=== PATIENT | female | born 1965 | race Caucasian/White ===

== ENCOUNTER 2022-12-05 06:54 | Inpatient (IN) | payer MEDICARE, MEDICAID ==
[~2022-12-05] VITALS: Ht 162.6 cm; Wt 66.0 kg
[2022-12-05] MEDS ORDERED: SODIUM CHLORIDE 0.9% 1,000 ML IVB ONE (07:00)
[2022-12-05] MEDS ORDERED: KETOROLAC TROMETH 30 MG/ML 1ML VIAL IV ONE ×2 (07:00→11:45)
[2022-12-05] MEDS ORDERED: ONDANSETRON HCL 4 MG/2 ML VIAL IV ONE ×2 (07:00→11:45)
[2022-12-05 07:22] LABS: Eosinophils # (auto) 0 10 ^3/uL (0-0.8); Eosinophils % (auto) 0.2 % (0.0-7.0); Lymphocytes # (auto) 0.9 10 ^3/uL (0.4-5.4); Monocytes # (auto) 0.5 10 ^3/uL (0-1.3); Neutrophils # (auto) 10.9 10 ^3/uL (1.6-8.6)
[2022-12-05 07:23] LABS: Basophils # (auto) 0 10 ^3/uL (0-0.2); Basophils % (auto) 0.3 % (0.0-2.0); Hemoglobin 14.1 g/dL (12.2-16.2); Lymphocytes % (auto) 7.4 % (10.0-50.0); Mean Corpuscular Hemoglobin 31.7 pg (28.0-32.0); Mean Corpuscular Hgb Conc. 34.5 g/dL (32.0-36.0); Monocytes % (auto) 4.4 % (0.0-12.0); Neutrophils % (auto) 87.7 % (37.0-80.0); Nucleated Red Blood Cells % 0.1 %; Red Blood Cells 4.45 10^6/uL (4.0-5.20); Red Cell Distribution Width 13.7 % (11.8-14.3); White Blood Cell 12.4 10^3/uL (4.4-10.8)
[2022-12-05 08:07] LABS: Albumin 4.1 g/dL (3.4-5.0); BUN/Creatinine Ratio 20.4; Calcium 9.2 mg/dL (8.5-10.1); Potassium 3.8 mmol/L (3.5-5.1)
[2022-12-05 08:11] LABS: Bilirubin, Total 0.3 mg/dL (0.2-1.0); Total Protein 7.6 g/dL (6.4-8.2)
[2022-12-05 08:24] LABS: Urine Bacteria NONE SEEN /hpf (None Seen); Urine Blood 2+ /uL (Negative); Urine Specific Gravity 1.007 (1.001-1.035); Urine WBC 1 /hpf (0 - 5)
[2022-12-05] MEDS ORDERED: ACETAMINOPHEN 325 MG TAB PO ONE (11:15)
[2022-12-05] MEDS ORDERED: PANTOPRAZOLE 40 MG TAB PO ONE (12:45)
[2022-12-05] MEDS ORDERED: ONDANSETRON HCL 4 MG/2 ML VIAL IV PRN (12:45)
[2022-12-05] MEDS ORDERED: ACETAMINOPHEN 325 MG TAB PO PRN (12:45)
[2022-12-05] MEDS ORDERED: SUMA100T15 PO (12:49)
[2022-12-05] MEDS ORDERED: AMIT1TAB35 PO (12:49)
[2022-12-05] MEDS ORDERED: ASPI-717 (12:49)
[2022-12-05] MEDS ORDERED: QUET300T24 PO (12:49)
[2022-12-05] MEDS ORDERED: HYDR-3682 PO (12:49)
[2022-12-05] MEDS ORDERED: SUMA100T15 (12:49)
[2022-12-05] MEDS: SODIUM CHLORIDE 0.9% 1,000 ML IV SCH (13:12)
[2022-12-05 15:50] LABS: Cholesterol 220 mg/dL (< 200)
[2022-12-05 15:53] LABS: HDL Cholesterol 55 mg/dL (40-59); LDL Cholesterol 154 mg/dL (< 100); Triglycerides 107 mg/dL (< 150)
[2022-12-05] MEDS: HYDROcodone-ACET 5/325MG TAB PO PRN ×2 (15:55→20:58)
[2022-12-06] MEDS ORDERED: SUMAtriptan SUCCINATE 25 MG TAB PO ONE ×2 (01:39→01:50)
[2022-12-06] MEDS: SUMAtriptan SUCCINATE 25 MG TAB PO PRN ×2 (01:58→14:22)
[2022-12-06] MEDS: SODIUM CHLORIDE 0.9% 1,000 ML IV SCH ×2 (02:05→15:25)
[2022-12-06] MEDS: HYDROcodone-ACET 5/325MG TAB PO PRN (02:05)
[2022-12-06 06:07] LABS: Basophils # (auto) 0 10 ^3/uL (0-0.2); Basophils % (auto) 0.9 % (0.0-2.0); Eosinophils # (auto) 0.1 10 ^3/uL (0-0.8); Eosinophils % (auto) 1.1 % (0.0-7.0); Hematocrit 36.2 % (36.0-46.0); Hemoglobin 12.6 g/dL (12.2-16.2); Lymphocytes # (auto) 1.8 10 ^3/uL (0.4-5.4); Lymphocytes % (auto) 38.8 % (10.0-50.0); Mean Corpuscular Hemoglobin 32.2 pg (28.0-32.0); Mean Corpuscular Hgb Conc. 34.8 g/dL (32.0-36.0); Mean Corpuscular Volume 92.5 fL (80.0-100.0); Monocytes # (auto) 0.6 10 ^3/uL (0-1.3); Neutrophils # (auto) 2.2 10 ^3/uL (1.6-8.6); Neutrophils % (auto) 46.2 % (37.0-80.0); Nucleated Red Blood Cells % 0.2 %; Red Blood Cells 3.92 10^6/uL (4.0-5.20); Red Cell Distribution Width 13.4 % (11.8-14.3); White Blood Cell 4.7 10^3/uL (4.4-10.8)
[2022-12-06] MEDS ORDERED: MELATONIN 5 MG TAB PO ONE (06:15)
[2022-12-06 06:17] LABS: Albumin 3.6 g/dL (3.4-5.0); Calcium 8.6 mg/dL (8.5-10.1); Potassium 4.1 mmol/L (3.5-5.1)
[2022-12-06 06:22] LABS: BUN/Creatinine Ratio 28.8; Bilirubin, Total 0.4 mg/dL (0.2-1.0); Total Protein 6.2 g/dL (6.4-8.2)
[2022-12-06] MEDS: AMITRIPTYLINE HCL 25 MG TAB PO SCH (10:00)
[2022-12-06] MEDS ORDERED: QUEtiapine FUMARATE 100 MG TAB PO SCH ×2 (10:00→23:00)
[2022-12-06] MEDS: PANTOPRAZOLE 40 MG TAB PO SCH (10:21)
[2022-12-06] MEDS: ENOXAPARIN SOD 40 MG/0.4 ML SYRINGE SC SCH (10:21)
[2022-12-06] MEDS ORDERED: cefTRIAXone 1GM/50ML D5W 50 ML IV ONE (12:45)
[2022-12-06 16:28] VITALS: BP 128/74
[2022-12-06 17:19] VITALS: BP 128/74
[2022-12-06 22:00] VITALS: BP 133/82
[2022-12-06] MEDS ORDERED: MELATONIN 5 MG TAB PO SCH (22:00)
[2022-12-06] MEDS ORDERED: LACTULOSE 20Gm/30ML SOLN PO PRN (23:00)
[2022-12-06] MEDS: DOCUSATE SOD 100 MG CAP PO PRN ×2 (23:13→23:17)
[2022-12-07] VITALS: BP 114/70
[2022-12-07 05:00] VITALS: BP 104/67
[2022-12-07] MEDS ORDERED: CIPR-173 PO (08:00)
[2022-12-07] MEDS ORDERED: TRAM50TA2 PO (08:00)
[2022-12-07] MEDS ORDERED: TAM04C PO (08:00)
[2022-12-07] MEDS: PANTOPRAZOLE 40 MG TAB PO SCH (08:46)
[2022-12-07] MEDS: ENOXAPARIN SOD 40 MG/0.4 ML SYRINGE SC SCH (08:47)
[2022-12-07] MEDS: AMITRIPTYLINE HCL 25 MG TAB PO SCH (08:48)
[2022-12-07 09:00] VITALS: BP 139/76
[2022-12-07] MEDS ORDERED: cefTRIAXone 1GM/50ML D5W 50 ML IV SCH (09:00)
[2022-12-07 10:52] VITALS: BP 139/76
== END 2022-12-07 13:30 | disposition home or self-care (01) | DRG 694 ==
LOC: ER 06:54 → EDBD 06:54 → OVERFLOW 12:44 → CENTRAL 12-06 14:47
PROVIDERS: ADMIT Nurse Practitioner Family; ATTEND Family Medicine
DX: N20.1 Calculus of ureter (principal); N39.0 Urinary tract infection, site not specified; E78.5 Hyperlipidemia, unspecified; D72.829 Elevated white blood cell count, unspecified; Z20.822 Contact with and (suspected) exposure to COVID-19; E78.00 Pure hypercholesterolemia, unspecified; K59.00 Constipation, unspecified; F32.A Depression, unspecified; Z87.442 Personal history of urinary calculi; Z98.51 Tubal ligation status
CPT/HCPCS: 36415; 74176; 80053; 80061; 81001; 83036; 83690; 84443; 85025; 87426; 96361; 96374; 96375; G0378; J0696; J1885; J2405

== ENCOUNTER 2023-01-09 14:55 | Emergency (ER) | payer MEDICARE, MEDICAID ==
[~2023-01-09] VITALS: Ht 162.6 cm; Wt 60.0 kg
[~2023-01-09 14:55] MED LIST: AMIT1TAB35 PO; ASPI-717; CIPR-173 PO; HYDR-3682 PO; QUET300T24 PO; SUMA100T15; SUMA100T15 PO; TAM04C PO; TRAM50TA2 PO
[2023-01-09 15:46] VITALS: BP 139/93
[2023-01-09] MEDS ORDERED: KETOROLAC TROMETH 60MG/2ML VIAL IM ONE (16:45)
[2023-01-09] MEDS ORDERED: ONDANSETRON ODT 4 MG TAB PO ONE (16:45)
[2023-01-09] MEDS ORDERED: IBUP600T27 PO (17:19)
[2023-01-09] MEDS ORDERED: ONDA-144 PO (17:19)
== END 2023-01-09 17:34 | disposition home or self-care (01) ==
LOC: ER 14:55
DX: G43.909 Migraine, unspecified, not intractable, without status migrainosus (principal); E78.5 Hyperlipidemia, unspecified; Z98.51 Tubal ligation status; Z87.442 Personal history of urinary calculi
CPT/HCPCS: 70450; 96372; 99285; J1885; Q0162

== ENCOUNTER 2023-01-26 18:53 | Emergency (ER) | payer MEDICARE, MEDICAID ==
[~2023-01-26] VITALS: Ht 162.6 cm; Wt 54.4 kg
[~2023-01-26 18:53] MED LIST changes: +IBUP600T27 PO; +ONDA-144 PO
[2023-01-26] MEDS ORDERED: SODIUM CHLORIDE 0.9% 1,000 ML IV ONE (19:00)
[2023-01-26] MEDS ORDERED: HALOPERIDOL LACTATE 5 MG/ML INJ VIAL IM ONE ×2 (19:00→23:15)
[2023-01-26] MEDS ORDERED: LORazepam 2MG/ML-1ML VIAL IM ONE ×2 (19:00→23:15)
[2023-01-26] MEDS ORDERED: diphenhdrAMINE HCL 50 MG/1 ML VL IM ONE (19:00)
[2023-01-26 19:49] LABS: Basophils # (auto) 0 10 ^3/uL (0-0.2); Eosinophils # (auto) 0 10 ^3/uL (0-0.8); Hemoglobin 12.8 g/dL (12.2-16.2)
[2023-01-26 19:51] LABS: Basophils % (auto) 0.7 % (0.0-2.0); Eosinophils % (auto) 0.2 % (0.0-7.0); Hematocrit 37.3 % (36.0-46.0); Lymphocytes # (auto) 1.5 10 ^3/uL (0.4-5.4); Lymphocytes % (auto) 24.9 % (10.0-50.0); Mean Corpuscular Hemoglobin 31.3 pg (28.0-32.0); Mean Corpuscular Hgb Conc. 34.3 g/dL (32.0-36.0); Mean Corpuscular Volume 91.1 fL (80.0-100.0); Monocytes % (auto) 16.6 % (0.0-12.0); Neutrophils # (auto) 3.4 10 ^3/uL (1.6-8.6); Neutrophils % (auto) 57.6 % (37.0-80.0); Red Blood Cells 4.09 10^6/uL (4.0-5.20); Red Cell Distribution Width 13.8 % (11.8-14.3)
[2023-01-26 20:06] LABS: Albumin 3.9 g/dL (3.4-5.0); Calcium 9.8 mg/dL (8.5-10.1); Potassium 3.1 mmol/L (3.5-5.1)
[2023-01-26 20:10] LABS: BUN/Creatinine Ratio 20.6 (10.0-20.0); Bilirubin, Total 0.5 mg/dL (0.2-1.0); Total Protein 7.5 g/dL (6.4-8.2)
[2023-01-27 10:45] LABS: Alcohol, Urine < 3.0 mg/dL (0-10); Amphetamine Screen, Urine NEGATIVE (NEGATIVE); Barbiturate Scree,Urine NEGATIVE (NEGATIVE); Benzodiazephine Screen, Urine NEGATIVE (NEGATIVE); Cannabinoid Screen, Urine NEGATIVE (NEGATIVE); Cocaine Screen, Urine NEGATIVE (NEGATIVE); Opiate Scree,Urine NEGATIVE (NEGATIVE); Phencyclidine Screen, Urine NEGATIVE (NEGATIVE)
[2023-01-27 10:53] LABS: Urine Bacteria NONE SEEN /hpf (None Seen); Urine Blood Negative /uL (Negative); Urine Mucus FEW (None Seen); Urine WBC 12 /hpf (0 - 5)
[2023-01-27] MEDS: QUEtiapine FUMARATE 25 MG TAB PO SCH (22:09)
[2023-01-28] MEDS ORDERED: TEMAZEPAM 15 MG CAP PO ONE (01:15)
[2023-01-28] MEDS ORDERED: ACETAMINOPHEN 325 MG TAB PO ONE (05:00)
[2023-01-28] MEDS ORDERED: diphenhdrAMINE HCL 25 MG CAP PO ONE (11:00)
[2023-01-28] MEDS: QUEtiapine FUMARATE 25 MG TAB PO SCH (22:00)
[2023-01-28] MEDS: LORazepam 2MG/ML-1ML VIAL IM ONE (22:05)
[2023-01-29] MEDS ORDERED: diphenhdrAMINE HCL 50 MG/1 ML VL IM ONE (00:15)
[2023-01-29] MEDS ORDERED: HALOPERIDOL LACTATE 5 MG/ML INJ VIAL IM ONE (00:15)
[2023-01-29] MEDS: LORazepam 2MG/ML-1ML VIAL IM ONE (00:15)
[2023-01-29] MEDS ORDERED: HYDROcodone-ACET 10/325MG TAB PO ONE (00:30)
[2023-01-29] MEDS ORDERED: ACETAMINOPHEN 325 MG TAB PO ONE (09:00)
[2023-01-29 09:22] VITALS: BP 123/72
== END 2023-01-29 10:03 | disposition short-term general hospital (02) ==
LOC: ER 18:53 → EDBD 18:53 → ER 01-29 10:03
DX: R41.82 Altered mental status, unspecified (principal); E78.5 Hyperlipidemia, unspecified; Z98.51 Tubal ligation status; Z87.442 Personal history of urinary calculi; Z20.822 Contact with and (suspected) exposure to COVID-19
CPT/HCPCS: 36415; 80053; 80307; 80320; 81001; 85025; 87426; 96360; 96372; 99285; J1200; J1630; J2060; J7030

== ENCOUNTER 2024-01-13 14:29 | Emergency (ER) | payer OTHER ==
[~2024-01-13] VITALS: Ht 162.6 cm; Wt 59.0 kg
[~2024-01-13 14:29] MED LIST changes: +AMIT-118 PO; -AMIT1TAB35 PO; +IBUP-1454 PO; -IBUP600T27 PO; +NABU-72 PO; -TAM04C PO; +TAMS-35 PO; +ZOFR4T PO
[2024-01-13 15:27] VITALS: PULSE 118; RESP 20; O2SAT 96
[2024-01-13 15:57] LABS: Basophils # (auto) 0 10 ^3/uL (0-0.2); Eosinophils # (auto) 0 10 ^3/uL (0-0.8); Mean Corpuscular Volume 93.5 fL (80.0-100.0); Monocytes # (auto) 0.8 10 ^3/uL (0-1.3); Nucleated Red Blood Cells % 0.1 %
[2024-01-13 15:59] LABS: Basophils % (auto) 0.7 % (0.0-2.0); Eosinophils % (auto) 0.7 % (0.0-7.0); Hematocrit 40.2 % (36.0-46.0); Hemoglobin 13.6 g/dL (12.2-16.2); Lymphocytes # (auto) 1.3 10 ^3/uL (0.4-5.4); Lymphocytes % (auto) 19.1 % (10.0-50.0); Mean Corpuscular Hemoglobin 31.6 pg (28.0-32.0); Mean Corpuscular Hgb Conc. 33.8 g/dL (32.0-36.0); Monocytes % (auto) 11.9 % (0.0-12.0); Neutrophils # (auto) 4.6 10 ^3/uL (1.6-8.6); Neutrophils % (auto) 67.6 % (37.0-80.0); Red Cell Distribution Width 13.6 % (11.8-14.3); White Blood Cell 6.8 10^3/uL (4.4-10.8)
[2024-01-13 16:07] LABS: Magnesium 2.2 mg/dL (1.6-2.6)
[2024-01-13 16:09] LABS: Alanine Aminotransferase 22 U/L (7-40); Albumin 4.7 g/dL (3.2-4.8); Alkaline Phosphatase 86 U/L (46-116); Anion Gap 7 (5-15); Aspartate Aminotransferase 20 U/L (13-40); BUN/Creatinine Ratio 12.5 (10.0-20.0); Bilirubin, Total 0.6 mg/dL (0.2-1.0); Blood Urea Nitrogen 10 mg/dL (9-23); Calcium 10.6 mg/dL (8.7-10.4); Carbon Dioxide 28 mmol/L (20-30); Chloride 106 mmol/L (98-107); Glucose 87 mg/dL (74-106); Potassium 3.5 mmol/L (3.5-5.1); Sodium 141 mmol/L (136-145); Total Protein 7.3 g/dL (5.7-8.2)
[2024-01-13 16:10] LABS: Acetaminophen < 2.0 UG/ML (10.0-20.0)
[2024-01-13 16:13] LABS: Salicylate < 3.0 mg/dL (2.8-20.0)
[2024-01-13 16:26] LABS: Blood Alcohol < 3.0 mg/dL (<10)
[2024-01-13] MEDS: diphenhdrAMINE HCL 50 MG/1 ML VL IM ONE (16:30)
[2024-01-13] MEDS ORDERED: HALOPERIDOL LACTATE 5 MG/ML INJ VIAL IM ONE (16:30)
[2024-01-13] MEDS: LORazepam 2MG/ML-1ML VIAL IM ONE (16:30)
[2024-01-13] MEDS: LORazepam 2MG/ML-1ML VIAL IV ONE (16:52)
[2024-01-13] MEDS: LORazepam 2MG/ML-1ML VIAL ONE (16:53)
[2024-01-13 19:15] VITALS: PULSE 101; RESP 24; O2SAT 98
[2024-01-13] MEDS: MAGNESIUM SULFATE 1GM/100ML 100 ML IV SCH (19:48)
[2024-01-13] MEDS: SODIUM CHLORIDE 0.9% 1,000 ML IV ONE (20:39)
[2024-01-14] MEDS: diphenhdrAMINE HCL 50 MG/1 ML VL IV ONE (04:11)
[2024-01-14] MEDS: LORazepam 2MG/ML-1ML VIAL IV ONE (04:11)
[2024-01-14 08:00] VITALS: PULSE 105; RESP 21
[2024-01-14 08:07] LABS: Urine Bacteria FEW /hpf (None Seen); Urine Blood Negative /uL (Negative); Urine Clarity Turbid (Clear); Urine Protein, UAD Negative (Negative); Urine Specific Gravity 1.009 (1.001-1.035); Urine Urobilinogen Normal (Negative); Urine WBC 2 /hpf (0 - 5)
[2024-01-14 08:08] LABS: Urine Color Straw (Yellow)
[2024-01-14] MEDS: OLANZapine 5 MG TAB PO ONE (08:11)
[2024-01-14 08:17] LABS: Amphetamine Screen, Urine Neg (NEGATIVE); Barbiturate Scree,Urine Neg (NEGATIVE); Benzodiazephine Screen, Urine Neg (NEGATIVE); Cocaine Screen, Urine Neg (NEGATIVE)
[2024-01-14 08:18] LABS: Cannabinoid Screen, Urine Neg (NEGATIVE); Opiate Scree,Urine Neg (NEGATIVE); Phencyclidine Screen, Urine Neg (NEGATIVE)
[2024-01-14 19:30] VITALS: RESP 21
[2024-01-14] MEDS: OLANZapine 5 MG TAB PO SCH (22:00)
[2024-01-15] MEDS: LORazepam 2MG/ML-1ML VIAL IM ONE ×2 (05:00→14:01)
[2024-01-15] MEDS: diphenhdrAMINE HCL 50 MG/1 ML VL IM ONE ×2 (05:01→14:01)
[2024-01-15] MEDS: SODIUM CHLORIDE 0.9% 1,000 ML IV ONE (05:01)
[2024-01-15 07:30] VITALS: PULSE 104; RESP 18; O2SAT 97
[2024-01-15 20:10] VITALS: RESP 16; O2SAT 97
[2024-01-16] MEDS: LORazepam 0.5 MG TAB PO PRN (10:59)
[2024-01-16] MEDS: OLANZapine 5 MG TAB ONE (21:34)
[2024-01-17] MEDS: LORazepam 0.5 MG TAB ONE ×2 (05:10→22:37)
[2024-01-17 07:15] VITALS: O2SAT 98
[2024-01-17 07:54] VITALS: BP 131/68; TEMP 97.8
[2024-01-17] MEDS: DOCUSATE SOD 100 MG CAP PO ONE ×2 (12:17)
[2024-01-17 22:02] VITALS: RESP 16
[2024-01-17] MEDS: OLANZapine 5 MG TAB ONE (22:37)
[2024-01-18 12:22] VITALS: PULSE 66; RESP 18; O2SAT 99
== END 2024-01-18 11:57 | disposition home or self-care (01) ==
LOC: ER 14:29 → EDBD 14:29 → ER 01-18 11:57
DX: T43.592A Poisoning by other antipsychotics and neuroleptics, intentional self-harm, initial encounter (principal); F31.9 Bipolar disorder, unspecified; R45.851 Suicidal ideations; E78.5 Hyperlipidemia, unspecified; F41.9 Anxiety disorder, unspecified; I45.81 Long QT syndrome; Z98.51 Tubal ligation status; Z79.899 Other long term (current) drug therapy; Y92.9 Unspecified place or not applicable
CPT/HCPCS: 36415; 80053; 80307; 80320; 80329; 81001; 83735; 85025; 93005; 96361; 96365; 96366; 96372; 96375; 96376; 99285; J1200; J2060; J3475; J7030

== ENCOUNTER 2024-04-10 10:41 | Emergency (ER) | payer OTHER ==
[~2024-04-10] VITALS: Ht 162.6 cm; Wt 55.8 kg
[2024-04-10 12:22] LABS: Urine Bacteria None Seen /hpf (None Seen)
[2024-04-10 12:23] LABS: Basophils # (auto) 0.1 10 ^3/uL (0-0.2); Basophils % (auto) 0.8 % (0.0-2.0); Eosinophils # (auto) 0.1 10 ^3/uL (0-0.8); Eosinophils % (auto) 1.7 % (0.0-7.0); Hematocrit 45.6 % (36.0-46.0); Hemoglobin 15.5 g/dL (12.2-16.2); Lymphocytes # (auto) 1.7 10 ^3/uL (0.4-5.4); Lymphocytes % (auto) 23.4 % (10.0-50.0); Mean Corpuscular Hemoglobin 31.7 pg (28.0-32.0); Mean Corpuscular Volume 93.2 fL (80.0-100.0); Monocytes # (auto) 0.7 10 ^3/uL (0-1.3); Monocytes % (auto) 10.2 % (0.0-12.0); Neutrophils # (auto) 4.6 10 ^3/uL (1.6-8.6); Neutrophils % (auto) 63.9 % (37.0-80.0); Nucleated Red Blood Cells % 0.1 %; Red Cell Distribution Width 14.2 % (11.8-14.3); White Blood Cell 7.2 10^3/uL (4.4-10.8)
[2024-04-10 12:33] LABS: Urine Blood Negative /uL (Negative); Urine Clarity Clear (Clear); Urine Color Yellow (Yellow); Urine Mucus FEW (None Seen); Urine Protein, UAD Negative (Negative); Urine Urobilinogen Normal (Negative); Urine WBC 1 /hpf (0 - 5); Urine pH 5.5 (5.0-9.0)
[2024-04-10 12:38] LABS: Chloride 107 mmol/L (98-107); Potassium 3.8 mmol/L (3.5-5.1); Sodium 140 mmol/L (136-145)
[2024-04-10 12:39] LABS: Anion Gap 5 (5-15); Calcium 10.4 mg/dL (8.7-10.4); Carbon Dioxide 28 mmol/L (20-30)
[2024-04-10 12:44] LABS: BUN/Creatinine Ratio 10.3 (10.0-20.0); Blood Urea Nitrogen 8 mg/dL (9-23); Glucose 104 mg/dL (74-106)
[2024-04-10 13:07] VITALS: BP 141/87; PULSE 90; RESP 18; TEMP 97.7; O2SAT 96
[2024-04-10] MEDS ORDERED: CEPH500C PO (13:35)
== END 2024-04-10 13:42 | disposition home or self-care (01) ==
LOC: ER 10:41
DX: R23.8 Other skin changes (principal); B34.9 Viral infection, unspecified; R22.2 Localized swelling, mass and lump, trunk; R53.83 Other fatigue; E78.5 Hyperlipidemia, unspecified; Z88.6 Allergy status to analgesic agent; Z98.51 Tubal ligation status; Z87.442 Personal history of urinary calculi
CPT/HCPCS: 36415; 76856; 80048; 81001; 85025